=== PATIENT | female | born 2000 | race Caucasian/White ===

== ENCOUNTER 2020-06-04 10:28 | Emergency (ER) | payer SELFPAY ==
[~2020-06-04] VITALS: Ht 157.5 cm; Wt 83.9 kg
[2020-06-04] MEDS ORDERED: PRENATAL MULTI1 EAC5 PO (12:15)
== END 2020-06-04 12:30 | disposition home or self-care (01) ==
LOC: ED 10:28
DX: O21.9 Vomiting of pregnancy, unspecified (principal); Z3A.08 8 weeks gestation of pregnancy
CPT/HCPCS: 81001; 84703; 99284

== ENCOUNTER 2020-09-25 22:02 | Day surgery (SDC) | payer OTHER ==
[~2020-09-25] VITALS: Ht 157.5 cm; Wt 87.5 kg
[~2020-09-25 22:02] MED LIST: PRENATAL MULTI1 EAC5 PO
--- NOTE | 2020-09-26 00:25 | NUR ---
[facility] RAPID COVID TEST DONE PER DR ORDER. COVID TEST COLLECTED BROM BOTH NARES W/O ISSUE. PT TOLERATED WELL.
--- NOTE | 2020-09-26 15:33 | NUR ---
09/26/20 1533 Chelita Escamilla 1527 PT TO PACU O2 VIA FACE MASK. TONES 130-170 VIA DOPPLER FOUND IN RT LOWER QUADRANT.
--- NOTE | 2020-09-27 07:42 | CONS ---
[facility] [address] [place], [place] [address] Signed DATE OF CONSULTATION: 09/26/2020 CHIEF COMPLAINT: Right upper quadrant and epigastric abdominal pain. HISTORY OF PRESENT ILLNESS: Olimpia is a 19-year-old female, who is now 22 weeks with her 1st baby. She had severe epigastric and right upper quadrant abdominal pain radiating through to her back. She said she had nausea and vomiting. She came down to [facility]. She was admitted by her lifeline representatives, Dr. Shipman overnight. Some Dilaudid helped significantly in that regard. She has been on IV fluids and kept n.p.o. Dr. Shipman had spoke with me earlier today. We spoke again just a few minutes ago. Otherwise, Olimpia seems to be doing well. PAST MEDICAL HISTORY: Pilonidal cyst. PAST SURGICAL HISTORY: Incision and drainage, pilonidal cyst with Dr. Toscano. SOCIAL HISTORY: Does not smoke or drink. She has a significant other. She is unemployed and drives. FAMILY HISTORY: None. REVIEW OF SYSTEMS: Ten systems reviewed and no new findings. ALLERGIES: Seasonal allergies, but no known drug allergies. MEDICATIONS: Tums and vitamin. PHYSICAL EXAMINATION: VITAL SIGNS: Her blood pressure is 101/78, heart rate 86, respiratory rate 14, temperature is 98.2. She is 5 feet 1 inch tall, about 87 kg. GENERAL: Olimpia is a 19-year-old female, who is lying supine in her hospital bed. She does not appear systemically ill or toxic. She is not jaundiced. LUNGS: Clear to auscultation bilaterally. HEART: Regular rate and rhythm without murmurs. ABDOMEN: Gravid and feels like the top of the uterus is at or slightly above the Electronically Signed By: GLORIA COYLE MD 09/27/20 0742 PATIENT NAME: OLIMPIA BROWN CONSULTATION DATE OF : 99 REPORT #: [id number] PHYSICIAN: GLORIA COYLE MD PCP: NO PRIMARY CARE PHYSICIAN REPORT IS CONFIDENTIAL AND NOT TO BE RELEASED WITHOUT AUTHORIZATION [facility] [address] [place], [place] [address] Signed umbilicus. She seems to be tender to moderately deep palpation in right upper quadrant. LABORATORY DATA: Her white blood cell count 17.5, hemoglobin 10.8, neutrophils 82. Electrolytes unremarkable. Glucose 100. COVID negative. Total bilirubin 0.2, AST 24, ALT 28, alkaline phosphatase 60. Albumin is 3.9, amylase 63, lipase 18. RADIOGRAPHIC STUDIES: Olimpia had an ultrasound done earlier today. It showed some sludge versus some tiny mobile gallstones. The gallbladder wall is not thickened. The common bile duct is unremarkable 3 mm. The liver is unremarkable. There is no pericholecystic fluid. ASSESSMENT AND PLAN: Olimpia is a 19-year-old female, who is now 22 weeks with a classic gallbladder attack. She more than likely passed one of the small gallstones. I had a long discussion with Olimpia and her lifeline representatives, Dr. Rayna Shipman. At this point, it seems very reasonable to take her to the OR and remove that gallbladder laparoscopically. Of course, there is risk to that including, but not limited to bleeding, infection, scarring, change in contour of the skin, damage to bowel, damage to the main bile duct, incisional hernias, and difficulties with the baby including . I have reviewed with Olimpia the location and function of the gallbladder. We discussed laparoscopic versus open cholecystectomy. She understands expected intraop and postop course. She told me that her great grandmother had a gallbladder surgery when she was many years ago. She has expressed understanding and would like to proceed with surgery. Gloria Coyle MD ALB/MODL /[id number] cc: Chart Filed Incomplete MD Gloria Ashton MD Copies: CHART FILED INCOMPLETE Electronically Signed By: GLORIA COYLE MD 09/27/20 0742 PATIENT NAME: OLIMPIA BROWN CONSULTATION DATE OF : 99 REPORT #: [id number] PHYSICIAN: GLORIA COYLE MD PCP: NO PRIMARY CARE PHYSICIAN REPORT IS CONFIDENTIAL AND NOT TO BE RELEASED WITHOUT AUTHORIZATION [facility] [address] [place], [place] [address] Signed RAYNA SHIPMAN MD, ANDREW L MD ~ Electronically Signed By: GLORIA COYLE MD 09/27/20 0742 PATIENT NAME: OLIMPIA BROWN CONSULTATION DATE OF : 99 REPORT #: [id number] PHYSICIAN: GLORIA COYLE MD PCP: NO PRIMARY CARE PHYSICIAN REPORT IS CONFIDENTIAL AND NOT TO BE RELEASED WITHOUT AUTHORIZATION
--- NOTE | 2020-09-27 07:42 | OR ---
[facility] [address] [place], [place] [address] Signed DATE OF OPERATION: 09/26/2020 SURGEON: Gloria Coyle MD PREOPERATIVE DIAGNOSIS: Cholecystitis with cholelithiasis. POSTOPERATIVE DIAGNOSES: 1. Cholecystitis with cholelithiasis. 2. Cholesterolosis. PROCEDURE: Laparoscopic cholecystectomy without intraoperative cholangiogram. ESTIMATED BLOOD LOSS: None. FINDINGS: Olimpia had approximately 15 stones, measuring 3 mm each in diameter. She had mild patchy inflammatory changes of the gallbladder wall. She had significant cholesterolosis. INDICATIONS: Olimpia is a 19-year-old, who is now 22 weeks with her 1st baby. Last night, she had severe right upper quadrant epigastric abdominal pain. It even stretched across the left upper quadrant in a belt-like fashion. She said it was radiating through to her back. She had nausea and vomiting. She said it was tremendous. She came in to the [facility] for evaluation with Dr. Shipman. Some Dilaudid helped settle the pain down and she was kept overnight. The ultrasound this morning showed sludge or tiny mobile stones within the gallbladder. The gallbladder wall did not appear thickened. Common bile duct was unremarkable at less than 3 mm in diameter. The liver was unremarkable. White count was a little up at 17.5, but the rest of her liver function tests were fine including the amylase and lipase. Her COVID test was negative. I have been asked to see her as a general surgeon on-call. I met with Olimpia in the [facility]. We had a long discussion regarding her current findings. She also understands that at 22 weeks our chance to do laparoscopic surgery for her is decreasing rapidly. After conferring with Olimpia and her cash sales audit clerk, Dr. Sun Shipman, we decided it was best to proceed with her gallbladder surgery at this time. I reviewed with her the location and function of the gallbladder. We discussed laparoscopic versus open cholecystectomy. She understands there is risk of surgery including, but not Electronically Signed By: GLORIA COYLE MD 09/27/20 0742 PATIENT NAME: OLIMPIA BROWN OPERATIVE REPORT DATE OF : 99 REPORT #: [id number] PHYSICIAN: GLORIA COYLE MD PCP: NO PRIMARY CARE PHYSICIAN REPORT IS CONFIDENTIAL AND NOT TO BE RELEASED WITHOUT AUTHORIZATION [facility] [address] [place] [address] Signed limited to bleeding, infection, scarring, change in contour of the skin, damage to bowel, damage to main bile duct, incisional hernias, and other unforeseen comorbidities. In addition, she is worried that baby can be lost if surgery is required for other issues. In addition, patients in this situation have a 3% to 7% chance of having a stone retained in her distal common bile duct. However, since she is , we do not proceed with intraoperative cholangiogram and fluoroscopy. She had expressed understanding and wished to proceed. PROCEDURE NOTE: I met with Olimpia once again in our preop area. I was able to call her mom, Jazmin over the telephone. Afterwards, we took Olimpia back in the operating room and placed her in a supine position under general endotracheal tube anesthesia. She was given Ancef preoperatively. SCDs were utilized. 50 mg of indomethacin was placed per rectum. She was then prepped and draped in the usual sterile fashion. We could feel the top of her uterus right about the umbilicus maybe slightly above the umbilicus. Therefore, we made a standard vertical incision in the midline slightly above the umbilicus. This was carried in the abdomen under direct visualization without difficulty. The Karen trocar was placed under direct visualization without difficulty. The abdomen was insufflated and the remaining trocars were placed in their usual positions under direct visualization of camera without difficulty. We had taken pictures throughout for photodocumentation. Her gallbladder was quite distended at the time of the surgery with patchy inflammatory changes. We dissected out the triangle of Calot and placed 2 clips across the cystic artery and it was divided. We did not perform intraoperative cholangiogram since she is 22 weeks . We had open the gallbladder just as it was coming to the cystic duct and we milked back 1 small 3 mm stone. The other stones we had pushed back up into the gallbladder and secured with a clip on the neck of the gallbladder. After this, we secured the cystic duct stump with a PDS Endoloop. Two clips have been placed across the cystic duct stump to joo its location. The gallbladder was then removed from the gallbladder fossa with the help of cautery and placed into an EndoCatch bag. We used our laparoscopic suturing device to pass 0 Vicryl suture on either side of the fascia of the subxiphoid trocar site. This was tied down to close this fascia primarily. After this, all the trocars were removed and all the gas was allowed to escape. The gallbladder then passed to our circulating nurse and opened on the back table. She had probably 15 stones, all measuring about 3 mm in diameter. They were all yellow cholesterol stones. She did have significant cholesterolosis of the gallbladder wall. After this, we closed the fascia, the supraumbilical trocar site with interrupted [id number] and simple 0-Vicryl sutures. Local anesthetic was injected into the trocar sites. Each trocar site was irrigated and suctioned out until clear. The skin and dermis of each trocar site were closed with interrupted 3-0 subcuticular Monocryl sutures. Dry gauze and tape were applied to all incisions. Olimpia was awakened from her anesthesia, extubated in the OR, and taken to recovery room in stable condition. Electronically Signed By: GLORIA COYLE MD 09/27/20 0742 PATIENT NAME: OLIMPIA BROWN OPERATIVE REPORT DATE OF : 99 REPORT #: [id number] PHYSICIAN: GLORIA COYLE MD PCP: NO PRIMARY CARE PHYSICIAN REPORT IS CONFIDENTIAL AND NOT TO BE RELEASED WITHOUT AUTHORIZATION [address] [address] Signed Gloria Coyle MD ALB/MODL /[id number] cc: MD Gloria Ashton MD Chart Filed Incomplete Copies: SUN SHIPMAN MD, ANDREW L MD CHART FILED INCOMPLETE ~ Electronically Signed By: GLORIA COYLE MD 09/27/20 0742 PATIENT NAME: OLIMPIA BROWN OPERATIVE REPORT DATE OF : 99 REPORT #: [id number] PHYSICIAN: GLORIA COYLE MD PCP: NO PRIMARY CARE PHYSICIAN REPORT IS CONFIDENTIAL AND NOT TO BE RELEASED WITHOUT AUTHORIZATION
--- NOTE | 2020-10-01 11:02 | PATH ---
[facility] [address] [place], [place] [address] Signed SPECIMEN(S): A GALLBLADDER AND STONES SPECIMEN SOURCE: A. GALLBLADDER AND STONES CLINICAL HISTORY: Cholecystitis. FINAL PATHOLOGIC DIAGNOSIS: Gallbladder, cholecystectomy: - Chronic cholecystitis with cholesterolosis. - Cholelithiasis. NAL:cml:C2NR MICROSCOPIC EXAMINATION: Histologic sections of all submitted blocks are examined by light microscopy. These findings, together with the gross examination, support the pathologic diagnosis. GROSS DESCRIPTION: The specimen, labeled "NIECY, gallbladder," is received in formalin and consists of Specimen: Previously opened gallbladder. Dimensions: 7 cm in length and 4.5 cm inner circumference. Serosa: violaceous and smooth. Cystic Duct: Unobstructed. Calculi: Several yellow, round gallstones within the container that range in size from 0.1 to 0.3 cm dimension. Mucosa: Green and velvety. Wall thickness: 0.4 cm. Lymph node: No pericystic lymph nodes are grossly identified. Additional: None. Underwear Welter sections are submitted in cassette (A1). JS (under the direct supervision of a pathologist) The Gross Description was prepared using a voice recognition system. The report was reviewed for accuracy; however, sound-alike word errors, addition and/or deletions may occur. If there is any question about this report, please contact Client Services. PERFORMING LABORATORY: The technical component was performed by Briggo, Castro Briggs, PATIENT NAME: OLIMPIA BROWN PATHOLOGY DATE OF : 99 REPORT #: [id number] PHYSICIAN: AASHISH PATHOLOGY PCP: NO PRIMARY CARE PHYSICIAN REPORT IS CONFIDENTIAL AND NOT TO BE RELEASED WITHOUT AUTHORIZATION [facility] [address] [place], [place] [address] [place] [address] (Second Chef: Marilu Zavala MD; CLIA# [id number]). Professional interpretation [facility], [address] [address] (CLIA# [id number]). Diagnostician: Dilia Martins MD Pathologist Electronically Signed 10/01/2020 Copies: ~ PATIENT NAME: OLIMPIA BROWN PATHOLOGY DATE OF : 99 REPORT #: [id number] PHYSICIAN: AASHISH PATHOLOGY PCP: NO PRIMARY CARE PHYSICIAN REPORT IS CONFIDENTIAL AND NOT TO BE RELEASED WITHOUT AUTHORIZATION
== END 2020-09-26 19:10 | disposition home or self-care (01) ==
LOC: DS 22:02 → FBCO 22:02 → FBC 09-26 00:06 → FBCO 09-26 00:06 → EDSTATUS 09-26 14:00 → DS 09-26 19:10 → FBC 09-26 19:10
PROVIDERS: ATTEND Colon & Rectal Surgery
PROC: 0FT44ZZ Resection of Gallbladder, Percutaneous Endoscopic Approach (ICD-10-PCS; principal; 2020-09-26 14:00)
DX: O99.612 Diseases of the digestive system complicating pregnancy, second trimester (principal); K80.10 Calculus of gallbladder with chronic cholecystitis without obstruction; Z3A.22 22 weeks gestation of pregnancy; Z20.822 Contact with and (suspected) exposure to COVID-19
CPT/HCPCS: 00790; 36415; 76700; 80053; 81001; 82150; 83690; 85025; 88304; 96361; 99213; C9803; J0330; J0690; J1100; J1170; J1885; J2250; J2405; J2704; J2765; J3010; J7121; U0003

== ENCOUNTER 2021-01-26 18:32 | Inpatient (IN) | payer OTHER ==
[~2021-01-26] VITALS: Ht 157.5 cm; Wt 93.9 kg
[~2021-01-26 18:32] MED LIST changes: +ACETAMINOPHEN500 MG PO; +AUGMENTIN 875-1 EACH PO; +KEFLEX750 MG PO; +VICODIN HP 10-1 EAC1 PO
--- NOTE | 2021-01-26 21:17 | NUR ---
PT WAS SWABBED FOR COVID 19 FULL PPE DONNED
--- NOTE | 2021-01-26 23:16 | PR ---
[facility] [address] [facility] [place], [place] [address] Signed Progress Notes IP Datetime Report Generated by CPN: 01/26/2021 23:16 PROGRESS NOTES: [id number] Impression: Normal Progression of Labor Procedures: Artificial ROM; Sterile Vag Exam Plan: Continue Present Management VITAL SIGNS: [id number] Vital Signs: Reviewed; Within Normal Limits EXAM: [id number] Dilatation: 4.0 Effacement: 90 Station: -2 Contractions: q 2 to 3 min MEMBRANES: [id number] Amniotic Fluid Color: Clear Comments: Comfortable after epidural and some progress. Will continue. FETUS A: [id number] FHR Baseline: 150 Variability: Moderate 6-25bpm Accelerations: 15X15 Decelerations: None FHR Category: Category I Presentation: Vertex Comments on Fetus A: No evidence of metabolic acidosis FETUS B: [id number] Signing Physician: Rayna Shipman MD Copies: ~ *Electronically Signed* 01/26/21 2316 RAYNA SHIPMAN MD PATIENT NAME: OLIMPIA BROWN PROGRESS NOTE DATE OF : 99 PHYSICIAN: RAYNA SHIPMAN MD RPT #: [id number] REPORT IS CONFIDENTIAL AND NOT TO BE RELEASED WITHOUT AUTHORIZATION
--- NOTE | 2021-01-27 05:17 | PR ---
[facility] [address] [place], [place] [address] Signed Progress Notes IP Datetime Report Generated by YIMI: 01/27/2021 05:16 PROGRESS NOTES: [id number] Impression: Normal Progression of Labor; Non-reassuring Heart Rate Procedures: Intrauterine Pressure Catheter; Scalp Electrode Plan: Deliver- Section Informed Consent Obtain: Section Delivery VITAL SIGNS: [id number] Vital Signs: Reviewed; Within Normal Limits EXAM: [id number] Dilatation: 7.0 Effacement: 90 Station: -2 Contractions: q 2 to 3 min MEMBRANES: [id number] Amniotic Fluid Color: Clear Comments: Fetus not tolerating contractions well with very frequent lates and episodes of min variability. Pitocin off and subq terb given with improvement in variability. Will proceed with C/S for intolerance to labor. PARQ done for C/S FETUS A: [id number] FHR Baseline: 150 Variability: Moderate 6-25bpm Accelerations: 15X15 Decelerations: None FHR Category: Category I Presentation: Vertex Comments on Fetus A: No evidence of metabolic acidosis FETUS B: [id number] Signing Physician: Rayna Shipman MD Copies: ~ *Electronically Signed* 01/27/21 0516 RAYNA SHIPMAN MD PATIENT NAME: OLIMPIA BROWN PROGRESS NOTE DATE OF : 99 PHYSICIAN: RAYNA SHIPMAN MD RPT #: [id number] REPORT IS CONFIDENTIAL AND NOT TO BE RELEASED WITHOUT AUTHORIZATION
--- NOTE | 2021-01-27 07:52 | NUR ---
01/27/21 0752 BINTA HENRY 0634 PATIENT TO ROOM 101 ON BED, SAVAGE BUI PROVIDED BEDSIDE REPORT. SPINAL EFFECTIVE PATIENT REPORTS 0/10 PAIN, NO NAUSEA. PATIENT SINUS TACH, BP APPEARS TO BE SOFT, SAVAGE MOVED BP CUFF TO LEFT LOWER LEG FOR BETTER READING, PATIENT APPEARS TO HAVE TREMORS. WARM BLANKETS PLACE. PATIENT HAS LOW GRADE TEMP 99.0 APPEARS RED IN CHEEKS, LYING SUPINE. 0705 PATIENT CONTINUES TO HAVE SOFT BP WITH SINUS TACH. APPEARS TO BE AWAKE, AT BEDSIDE WITH BABY. FUNDAL CHECKS WNL. SMALL AMOUNT OF DRAINAGE TO RHONDA PAD. 0715 BABY AT BREAST, PATIENT BP AND HR IMPROVED. PATIENT HAS STOPPED SHAKING, BP CUFF MOVED TO RIGHT UPPER ARM. PATIENT REPORTS NO PAIN, OR NAUSEA. DRESSING TO SURGICAL SITE C/D/I. FUNDAL CHECKS WNL, RHONDA PAD HAS SMALL AMOUNT OF DRAINAGE. 0720 EMPTIED 75 ML OF YELLOW URINE FROM RALPH BAG. PROVIDED BEDSIDE REPORT TO ALBERTA DAY. PATIENT AWAKE, FEBRILE 100.3 ORAL TEMP. FUNDAL CHECKS WNL. NO CHANGES TO DRESSING SITES.
--- NOTE | 2021-01-28 02:09 | PR ---
[facility] [address] [place], [place] [address] Signed PP Progress Notes Datetime Report Generated by YIMI: 01/28/2021 02:09 SUBJECTIVE: [id number] Pain: Within Normal Limits Nausea/Vomiting: Denies Flatus: No Bowel Movement: No Vital Signs: [id number] Vital Signs: Reviewed Notable Details: Oral temp 103.1 Tachycardia 120s Respiratory: Normal Abdomen/Uterus: Normal Lochia: Normal Extremities: Normal Incision: Normal Exam Comments: General: no apparent distress, sitting in bed, reporting feeling "a little warm" Skin: pt sunburned prior to admission, pattern unchanged per pt CV: RRR, trace lower extremity edema bilaterally Lungs: no dyspnea, regular respiratory rate, no retractions Abd: soft, appropriate tenderness to palpation, fundus firm below umbilicus Extremities: SCDs in place, negative Eros's bilaterally IMPRESSION/PLAN/PROCEDURES: [id number] Impression: Endometritis Plan: Antibiotic Therapy Other Plans: Blood cultures, CBC, CMP, lactic acid Progress Notes: [id number] POD#1 s/p PLTCS for nonreassuring heart tones Concern for endometritis -febrile: 103.1 -tachycardia: epidsodic non-persistent tachycardia at 1800, CBC at that time within normal limits, elevated (120s) @ 0100 Plan: -blood cultures, lactic acid, CMP, repeat CBC ordered -vitals q 30 min awaiting labs -start antibiotic therapy: Gentamicin 5mg/kg IV daily AND Clindamicin 900mg IV q8h Discussed plan with patient and RN, at bedside *Electronically Signed* 01/28/21 0209 ROB WILLIS DO PATIENT NAME: OLIMPIA BROWN Sean PROGRESS NOTE DATE OF : 99 PHYSICIAN: ROB WILLIS DO RPT #: [id number] REPORT IS CONFIDENTIAL AND NOT TO BE RELEASED WITHOUT AUTHORIZATION [facility] [address] [place] [address] Signed Signing Physician: Rob Willis DO Copies: ~ *Electronically Signed* 01/28/21 0209 ROB WILLIS DO PATIENT NAME: OLIMPIA BROWN Sean PROGRESS NOTE DATE OF : 99 PHYSICIAN: ROB WILLIS DO RPT #: [id number] REPORT IS CONFIDENTIAL AND NOT TO BE RELEASED WITHOUT AUTHORIZATION
--- NOTE | 2021-01-28 13:24 | PR ---
[facility] [facility] [address] [place], [place] [address] Signed PP Progress Notes Datetime Report Generated by YIMI: 01/28/2021 13:24 SUBJECTIVE: [id number] Pain: Within Normal Limits Nausea/Vomiting: Denies Flatus: Yes Bowel Movement: Yes Vital Signs: [id number] Vital Signs: Reviewed; Within Normal Limits Notable Details: Afebrile since 103.0 Cardiovascular: Normal Respiratory: Normal Abdomen/Uterus: Normal Lochia: Normal Extremities: Normal Incision: Normal Progress: Normal Exam Comments: General: no apparent distress, sitting in bed, reporting feeling "a little warm" Skin: pt sunburned prior to admission, pattern unchanged per pt CV: RRR, trace lower extremity edema bilaterally Lungs: no dyspnea, regular respiratory rate, no retractions Abd: soft, appropriate tenderness to palpation, fundus firm below umbilicus Extremities: SCDs in place, negative Eros's bilaterally IMPRESSION/PLAN/PROCEDURES: [id number] Impression: Endometritis Plan: Continue Present Management Other Plans: Blood cultures, CBC, CMP, lactic acid Progress Notes: POD #1 s/p PLTCS -Antibiotics started at 2am for endometritis, afebrile since 103.0 -Doing well, denies fevers/chills, abdominal pain unchanged and appropriate for postoperative state -Incision c/d/i, fundus firm below umbilicus -voiding, ambulating, +BM, tolerating regular diet - without difficulty Continue care, continue antibiotic therapy with gentamicin/clindamycin Continue to follow labs, blood cultures Anticipate DCing antibiotic therapy after 24-48 hours afebrile *Electronically Signed* 01/28/21 1324 ROB WILLIS DO PATIENT NAME: OLIMPIA BROWN Sean PROGRESS NOTE DATE OF : 99 PHYSICIAN: ROB WILLIS DO RPT #: [id number] REPORT IS CONFIDENTIAL AND NOT TO BE RELEASED WITHOUT AUTHORIZATION [address] [address] Signed Signing Physician: Rob Willis DO Copies: ~ *Electronically Signed* 01/28/21 1324 ROB WILLIS DO PATIENT NAME: OLIMPIA BROWN Sean PROGRESS NOTE DATE OF : 99 PHYSICIAN: ROB WILLIS DO RPT #: [id number] REPORT IS CONFIDENTIAL AND NOT TO BE RELEASED WITHOUT AUTHORIZATION
--- NOTE | 2021-01-29 08:30 | PR ---
[facility] [address] [facility] [place], [place] [address] Signed PP Progress Notes Datetime Report Generated by YIMI: 01/29/2021 08:29 SUBJECTIVE: [id number] Pain: Within Normal Limits Nausea/Vomiting: Denies Flatus: Yes Bowel Movement: Yes Vital Signs: [id number] Vital Signs: Reviewed; Within Normal Limits Notable Details: Afebrile since 01/28 Cardiovascular: Normal Respiratory: Normal Abdomen/Uterus: Abnormal Lochia: Normal Vulva/Perineum: Not Done CVA Tenderness: Not Done Extremities: Normal Incision: Normal Progress: Normal Exam Comments: Abdomen with active BS. Fundus firm, NT @ U-2. H/H 9.8/30, plat 161k, WBC 12.8 S77.8, L9.5 IMPRESSION/PLAN/PROCEDURES: [id number] Impression: Normal Progression Plan: Continue Present Management Other Plans: Blood cultures, CBC, CMP, lactic acid Progress Notes: Doing well overall though on antibiotics for endometritis. Cultures neg thus far from placenta and blood. Will continue antibiotics and observation. Signing Physician: Sun Shipman MD Copies: ~ *Electronically Signed* 01/29/21828 SUN SHIPMAN MD PATIENT NAME: OLIMPIA BROWN PROGRESS NOTE DATE OF : 99 PHYSICIAN: SUN SHIPMAN MD RPT #: [id number] REPORT IS CONFIDENTIAL AND NOT TO BE RELEASED WITHOUT AUTHORIZATION
--- NOTE | 2021-01-30 09:47 | PR ---
[facility] [address] [place], [place] [address] Signed PP Progress Notes Datetime Report Generated by YIMI: 01/30/2021 09:47 SUBJECTIVE: [id number] Pain: Within Normal Limits Nausea/Vomiting: Denies Flatus: Yes Bowel Movement: Yes Vital Signs: [id number] Vital Signs: Reviewed; Within Normal Limits Notable Details: Afebrile since 01/28 Cardiovascular: Normal Respiratory: Normal Abdomen/Uterus: Abnormal Lochia: Normal Vulva/Perineum: Not Done Breasts: Not Done CVA Tenderness: Not Done Extremities: Normal Incision: Normal Progress: Normal Exam Comments: Abdomen with active BS. Fundus firm, NT @ U-2. H/H 9.7/29.2, WBC 9 S48, plat 181k IMPRESSION/PLAN/PROCEDURES: [id number] Impression: Normal Progression Plan: Remove [place]; Discharge Other Plans: Blood cultures, CBC, CMP, lactic acid Other Procedures: varicella vaccination Progress Notes: Doing well. She has been afebrile >36 hrs and WBC down to normal. She is ready for D/C. Signing Physician: Rayna Shipman MD Copies: ~ *Electronically Signed* 01/30/21 0947 RAYNA SHIPMAN MD PATIENT NAME: OLIMPIA BROWN PROGRESS NOTE DATE OF : 99 PHYSICIAN: RAYNA SHIPMAN MD RPT #: [id number] REPORT IS CONFIDENTIAL AND NOT TO BE RELEASED WITHOUT AUTHORIZATION
--- NOTE | 2021-01-31 17:53 | OR ---
[facility] [address] [place], [place] [address] Signed DATE OF OPERATION: 01/27/2021 SURGEON: Sun Shipman MD ROOFING MACHINE OPERATOR: Rob Willis D.O. PREOPERATIVE DIAGNOSES: 1. Term . 2. intolerance to labor. POSTOPERATIVE DIAGNOSES: 1. Term . 2. intolerance to labor. 3. Delivered. PROCEDURE: Primary section with low segment transverse uterine incision. ANESTHESIA: Epidural. ESTIMATED BLOOD LOSS: 800 mL. DRAINS: Zimmer catheter. INDICATIONS AND FINDINGS: The patient is a 20-year-old female, 1, para 0, admitted at 39+ weeks with SROM and active labor. The patient progressed slowly in her labor going from 3 to 7 cm overnight. The baby was not tolerating the contractions well, however. Position changes were tried as well as stopping the Pitocin. At that point, the decision was made to proceed with primary section for intolerance to labor. She was delivered of a little boy from the ROP position with Apgars of 8/9 and a weight of 8 pounds 4 ounces. The uterus, tubes, ovaries, placenta were normal. DESCRIPTION OF PROCEDURE: The patient was prepped and draped in the supine position. A Pfannenstiel skin incision Electronically Signed By: SUN SHIPMAN MD 01/31/21 1753 PATIENT NAME: OLIMPIA BROWN OPERATIVE REPORT DATE OF : [birth year] REPORT #: [id number] PHYSICIAN: SUN SHIPMAN MD PCP: NO PRIMARY CARE PHYSICIAN REPORT IS CONFIDENTIAL AND NOT TO BE RELEASED WITHOUT AUTHORIZATION [facility] [address] [place], [place] [address] Signed was made, carried down through the fascia. The fascial incision was extended laterally. The inferior and superior fascial flaps were then created. The muscles were bluntly divided and the peritoneum opened sharply and the incision extended superiorly and inferiorly. The Maury retractor was then placed. The uterine incision was made at the upper aspect of the peritoneal reflection. The baby was delivered with the above findings and handed off to the pediatric staff in attendance. The placenta was removed manually. The uterus was explored with a lap tape assuring no remaining fragments. The edges of the incision were identified and the incision closed in 2 layers using 0-Monocryl. The first layer was a running locking stitch. The second was a vertical imbricating stitch. Additional [id number]-zu-[id number] were required in the midportion to control bleeding. Following this, the abdomen was irrigated, inspected, and bleeding points on the peritoneum were cauterized. Good hemostasis noted. The retractor was removed and the peritoneum identified. ACell graft was laid over the lower segment to aid in healing. The peritoneum was then closed in a running suture of 3-0 Vicryl. The muscles were brought together in the midline with interrupted sutures of 0-Vicryl. Bleeding points were controlled with cautery. This layer was irrigated and good hemostasis noted. ACell powder was sprinkled over the muscles to aid in healing. The fascia was then closed from the each angle to the midline with a running suture of 0-Vicryl. The subcu space was irrigated, inspected, and bleeding points were controlled with cautery. There was some bleeding from some subcu vessels on the right angle and [id number] sutures of 3-0 Vicryl placed in this area for control of bleeding. The deep space was then closed with interrupted sutures of 3-0 Vicryl. The skin was closed with latisha. All sponge and needle counts were correct. She tolerated the procedure well and was taken to the recovery room in good condition. Sun Shipman MD PJW/MODL /[id number] cc: Rob Willis DO Copies: ROB WILLIS DO Electronically Signed By: SUN SHIPMAN MD 01/31/21 1753 PATIENT NAME: OLIMPIA BROWN OPERATIVE REPORT DATE OF : 99 REPORT #: [id number] PHYSICIAN: SUN SHIPMAN MD PCP: NO PRIMARY CARE PHYSICIAN REPORT IS CONFIDENTIAL AND NOT TO BE RELEASED WITHOUT AUTHORIZATION [facility] [address] [place], [place] [address] Signed ~ Electronically Signed By: SUN SHIPMAN MD 01/31/21 1753 PATIENT NAME: OLIMPIA BROWN OPERATIVE REPORT DATE OF : 99 REPORT #: [id number] PHYSICIAN: SUN SHIPMAN MD PCP: NO PRIMARY CARE PHYSICIAN REPORT IS CONFIDENTIAL AND NOT TO BE RELEASED WITHOUT AUTHORIZATION
== END 2021-01-30 12:20 | disposition home or self-care (01) | DRG 786 ==
LOC: FBCO 18:32 → FBC 20:39
PROVIDERS: ADMIT Obstetrics & Gynecology; ATTEND Obstetrics & Gynecology
PROC: 00HU33Z Insertion of Infusion Device into Spinal Canal, Percutaneous Approach (ICD-10-PCS; 2021-01-26)
PROC: 3E0R3BZ Introduction of Anesthetic Agent into Spinal Canal, Percutaneous Approach (ICD-10-PCS; 2021-01-26)
PROC: 10H07YZ Insertion of Other Device into Products of Conception, Via Natural or Artificial Opening (ICD-10-PCS; 2021-01-27)
PROC: 10D00Z1 Extraction of Products of Conception, Low, Open Approach (ICD-10-PCS; principal; 2021-01-27 05:53)
PROC: 3E0234Z Introduction of Serum, Toxoid and Vaccine into Muscle, Percutaneous Approach (ICD-10-PCS; 2021-01-30)
DX: O99.214 Obesity complicating childbirth (principal); O41.1030 Infection of amniotic sac and membranes, unspecified, third trimester, not applicable or unspecified; O76 Abnormality in fetal heart rate and rhythm complicating labor and delivery; O86.12 Endometritis following delivery; Z20.822 Contact with and (suspected) exposure to COVID-19; Z37.0 Single live birth; E66.9 Obesity, unspecified; Z3A.39 39 weeks gestation of pregnancy; O99.62 Diseases of the digestive system complicating childbirth; K21.9 Gastro-esophageal reflux disease without esophagitis; Z23 Encounter for immunization
CPT/HCPCS: 01961; 36415; 59025; 80053; 80170; 82803; 83030; 83605; 85025; 85027; 86850; 86900; 86901; 87040; 87070; 87075; 87076; 87077; 87185; 87205; 90716; A9270; C9803; G0463; J0690; J1580; J1644; J2001; J2274; J2405; J2550; J2590; J2790; J2795; J3105; J3490; J7050; J7060; J7121; U0003

== ENCOUNTER 2022-09-23 13:33 | Inpatient (IN) | payer OTHER ==
[~2022-09-23] VITALS: Ht 154.9 cm; Wt 98.4 kg
[~2022-09-23 13:33] MED LIST changes: +ONDANSETRON ODT8 MG PO
--- NOTE | 2022-09-23 19:36 | NUR ---
09/23/221935 Marisol Sanderson 192 PATIENT INTO ROOM 104. PATIENT IS ALERT AND ORIENTED. BREATHING EQUAL AND UNLABORED. OXYGEN SATURATIONS ABOVE 95% ON ROOM AIR. SR ON TELE. FUNDAL MASSAGE COMPLETE. SPINAL LEVEL CHECKED. IVF INFUSING THROUGH A PATENT IV SITE WITH PIT. SCD'S ON. AT BEDSIDE. FBC NURSE WITH BABY.
--- NOTE | 2022-09-24 07:34 | PR ---
[facility] [address] [facility] [place], [place] [address] Signed PP Progress Notes Datetime Report Generated by YIMI: 09/24/2022 07:34 SUBJECTIVE: [id number] Pain: Within Normal Limits Nausea/Vomiting: Denies Flatus: No Vital Signs: [id number] Vital Signs: Reviewed; Within Normal Limits Cardiovascular: Normal Respiratory: Normal Abdomen/Uterus: Abnormal Lochia: Normal Vulva/Perineum: Not Done Breasts: Not Done CVA Tenderness: Not Done Extremities: Normal Incision: Normal Progress: Normal Exam Comments: Abdomen with active BS. Fundus firm, NT @ U-2. H/H 11.4/34.3, WBC 14, plat 142k IMPRESSION/PLAN/PROCEDURES: [id number] Impression: Normal Progression Other Plans: ambulate, shower Progress Notes: Doing well. Will increase activity. Signing Physician: Sun Shipman MD Copies: ~ *Electronically Signed* 09/24/22733 SUN SHIPMAN MD PATIENT NAME: OLIMPIA BROWN PROGRESS NOTE DATE OF : 99 PHYSICIAN: SUN SHIPMAN MD RPT #: [id number] REPORT IS CONFIDENTIAL AND NOT TO BE RELEASED WITHOUT AUTHORIZATION
--- NOTE | 2022-09-25 07:24 | PR ---
[facility] [address] [facility] [place], [place] [address] Signed PP Progress Notes Datetime Report Generated by YIMI: 09/25/2022 07:24 SUBJECTIVE: [id number] Pain: Within Normal Limits Nausea/Vomiting: Denies Flatus: Yes Bowel Movement: Yes Vital Signs: [id number] Vital Signs: Reviewed; Within Normal Limits Cardiovascular: Not Done Respiratory: Not Done Abdomen/Uterus: Abnormal Lochia: Normal Vulva/Perineum: Not Done Breasts: Not Done CVA Tenderness: Not Done Extremities: Normal Incision: Normal Progress: Normal Exam Comments: Abdomen with active BS. Fundus firm, NT @ U-1. Incision intact IMPRESSION/PLAN/PROCEDURES: [id number] Impression: Normal Progression Plan: Discharge Other Plans: ambulate, shower Procedures: None Progress Notes: Doing well. She is ready for D/C. Signing Physician: Sun Shipman MD Copies: ~ *Electronically Signed* 09/25/22723 SUN SHIPMAN MD PATIENT NAME: OLIMPIA BROWN PROGRESS NOTE DATE OF : 99 PHYSICIAN: SUN SHIPMAN MD RPT #: [id number] REPORT IS CONFIDENTIAL AND NOT TO BE RELEASED WITHOUT AUTHORIZATION
--- NOTE | 2022-09-26 18:28 | OR ---
[facility] [address] [place], [place] [address] Signed DATE OF OPERATION: 09/23/2022 SURGEON: Sun Shipman MD TROUBLE TRACER: Rob Willis DO PREOPERATIVE DIAGNOSES: A 36+ week , premature rupture of membranes, previous section. POSTOPERATIVE DIAGNOSES: A 36+ week , premature rupture of membranes, previous section, delivered. PROCEDURE: Repeat section with low segment transverse uterine incision. ANESTHESIA: Spinal. ESTIMATED BLOOD LOSS: 500 mL. DRAINS: Zimmer catheter. INDICATIONS AND FINDINGS: The patient is a 21-year-old female, 2, para 1, admitted at 36+ weeks with spontaneous rupture of membranes and early labor. She has undergone previous section and desired repeat. At the time of surgery, she was delivered of a little girl via lower segment transverse uterine incision with Apgars of 8 and 9 and weight of 6 pounds 1 ounce. The uterus, tubes, ovaries, and placenta appeared normal. PROCEDURE IN DETAIL: The patient was prepped and draped in the supine position. A repeat Pfannenstiel skin incision was made and carried down to the fascia. The incision was extended laterally. The inferior and superior fascial flaps were then developed. The muscles were bluntly and the peritoneum opened bluntly. The Maury retractor was then placed. The uterine incision was then made at the upper aspect of the peritoneal reflection. The incision was extended bluntly. The baby was delivered with the above findings and Electronically Signed By: SUN SHIPMAN MD 09/26/22 1828 PATIENT NAME: OLIMPIA BROWN OPERATIVE REPORT DATE OF : 99 REPORT #: [id number] PHYSICIAN: SUN SHIPMAN MD PCP: JOSEFA GARCIA PA-C REPORT IS CONFIDENTIAL AND NOT TO BE RELEASED WITHOUT AUTHORIZATION [facility] [address] [place], [place] [address] Signed handed off to the pediatric staff in attendance. The placenta was removed manually. The uterus was explored with a lap tape assuring no remaining fragments. The edges of the incision were identified and the uterus was closed in 2 layers using 0 Monocryl. The first layer was a running locking stitch and the second was a horizontal imbricating stitch. An additional [id number] was required in the midportion for control of bleeding. The abdomen was then irrigated and inspected and good hemostasis was noted. The retractor was removed and the peritoneum identified. The peritoneum was closed with a running suture of 3-0 Vicryl. The muscles were brought together with interrupted sutures of 0 Vicryl. Bleeding points on the muscle were controlled with cautery. This layer was irrigated and hemostasis was assured. The fascia was then closed from each angle to the midline with a running suture of 0 Vicryl. The subcu space was irrigated and bleeding points were controlled with cautery. The deep space was closed with interrupted sutures of 3-0 Vicryl. The skin was closed with latisha. All sponge and needle counts were correct. She tolerated the procedure well and was taken to the recovery room in good condition. Sun Shipman MD PJW/MODL /[id number] cc: Rob Willis DO Copies: ROB WILLIS DO ~ Electronically Signed By: SUN SHIPMAN MD 09/26/22 1828 PATIENT NAME: OLIMPIA BROWN OPERATIVE REPORT DATE OF : 99 REPORT #: [id number] PHYSICIAN: SUN SHIPMAN MD PCP: JOSEFA GARCIA PA-C REPORT IS CONFIDENTIAL AND NOT TO BE RELEASED WITHOUT AUTHORIZATION
== END 2022-09-25 13:50 | disposition home or self-care (01) | DRG 788 ==
LOC: FBCO 13:33 → FBC 14:20
PROVIDERS: ADMIT Obstetrics & Gynecology; ATTEND Obstetrics & Gynecology
PROC: 10D00Z1 Extraction of Products of Conception, Low, Open Approach (ICD-10-PCS; principal; 2022-09-23 18:03)
DX: O34.211 Maternal care for low transverse scar from previous cesarean delivery (principal); O42.013 Preterm premature rupture of membranes, onset of labor within 24 hours of rupture, third trimester; Z3A.36 36 weeks gestation of pregnancy; Z37.0 Single live birth; O99.824 Streptococcus B carrier state complicating childbirth; O26.893 Other specified pregnancy related conditions, third trimester; Z67.41 Type O blood, Rh negative
CPT/HCPCS: 01961; 36415; 83030; 84112; 85027; 86850; 86900; 86901; 87502; A9270; J0456; J0690; J1650; J1885; J2274; J2370; J2590; J2790; J3010; U0003

== ENCOUNTER 2024-04-12 08:49 | Emergency (ER) | payer OTHER ==
[~2024-04-12] VITALS: Ht 154.9 cm; Wt 62.1 kg
[2024-04-12] MEDS ORDERED: KETOROLAC TROMETHAMINE 30 MG/ML VIAL IV ONE (09:00)
[2024-04-12] MEDS ORDERED: ondansetron HCL 4 MG/2 ML VIAL IV ONE (09:00)
[2024-04-12] MEDS ORDERED: SODIUM CHLORIDE 0.9% 500 ML IV PRN (09:00)
[2024-04-12 09:23] LABS: BILIRUBIN, URINE NEGATIVE (negative); BLOOD/HGB, URINE NEGATIVE (Negative); KETONE, URINE TRACE (Negative); LEUK ESTERASE, URINE NEGATIVE (negative); NITRITE, URINE NEGATIVE (negative); PH, URINE 7.5 (5-7)
[2024-04-12 09:23] LABS: BASOPHILS 0.5 % (0-2); EOSINOPHILS 1.6 % (0-6); HEMATOCRIT 41.8 % (35.0-50.0); HEMOGLOBIN 13.8 g/dL (12.0-18.0); LYMPHOCYTES 23.9 % (24-44); MCH 26.2 (27-36); MCV 79.5 fl (81-99); MONOCYTES 10.1 % (0-12); NEUTROPHILS 63.9 % (39-80); PLATELET COUNT 171 K/uL (140-440); RBC 5.25 M/ul (4.3-5.7); RDW 13.1 (10.5-15.0)
[2024-04-12 09:39] LABS: ALBUMIN 3.8 g/dL (3.4-5.0); ALBUMIN/GLOBULIN RATIO 1.27 (1.1-2.4); ANION GAP 17.3 (7-21); BILIRUBIN, TOTAL 0.8 ng/dL (0.2-1.0); BUN/CREATININE RATIO 24.35 (6.0-28.6); CALCIUM 8.6 mg/dL (8.5-10.1); CREATININE, SERUM 0.78 mg/dL (0.55-1.02); POTASSIUM 3.3 mmol/L (3.5-5.1); PROTEIN, TOTAL 6.8 g/dL (6.4-8.2)
[2024-04-12 11:50] VITALS: BP 100/59
== END 2024-04-12 11:50 | disposition home or self-care (01) ==
LOC: ED 08:49
PROVIDERS: Emergency Medicine
DX: K43.9 Ventral hernia without obstruction or gangrene (principal); Z79.899 Other long term (current) drug therapy
CPT/HCPCS: 36415; 74177; 80053; 81003; 83690; 84703; 85025; 96375; 99284-25; J1885; J2405; J7040; Q9967

== ENCOUNTER 2024-11-16 12:39 | Emergency (ER) | payer OTHER ==
[~2024-11-16] VITALS: Ht 154.9 cm; Wt 97.1 kg
[~2024-11-16 12:39] MED LIST changes: +FAMOTIDINE20 MG PO; +FLUOXETINE HCL20 MG PO; +HYDROCODON-ACE1 EA10 PO; +JENCYCLA0.35 MG PO; +WELLBUTRIN SR100 MG PO
[2024-11-16] MEDS ORDERED: DOXYCYCLINE HYCLATE 100 MG CAP PO ONE (13:00)
[2024-11-16] MEDS ORDERED: DOXYCYCLINE HYCLATE 100 MG HOME.PACK PO ONE (13:00)
[2024-11-16] MEDS ORDERED: metroNIDAZOLE 250 MG TAB PO ONE (13:00)
[2024-11-16] MEDS ORDERED: levonorgestreL 1.5 MG TAB PO ONE (13:00)
[2024-11-16] MEDS ORDERED: metroNIDAZOLE 500 MG HOME.PACK PO ONE (13:00)
[2024-11-16] MEDS ORDERED: CEFTRIAXONE SOD 500 MG VIAL IM ONE (13:00)
[2024-11-16 13:03] VITALS: BP 130/82
[2024-11-16 14:25] LABS: BASOPHILS 0.4 % (0-2); EOSINOPHILS 0.5 % (0-6); HEMATOCRIT 40.7 % (35.0-50.0); HEMOGLOBIN 13.8 g/dL (12.0-18.0); LYMPHOCYTES 15.9 % (24-44); MCHC 33.9 g/dl (30-36); MCV 79.5 fl (81-99); MONOCYTES 5.8 % (0-12); NEUTROPHILS 77.4 % (39-80); PLATELET COUNT 206 K/uL (140-440); RBC 5.13 M/ul (4.3-5.7); RDW 14.3 (10.5-15.0)
[2024-11-16 14:42] LABS: ALBUMIN 4.3 g/dL (3.4-5.0); ALBUMIN/GLOBULIN RATIO 1.3 (1.1-2.4); ANION GAP 12.4 (7-21); BILIRUBIN, TOTAL 0.9 mg/dL (0.2-1.0); BUN/CREATININE RATIO 18.29 (6.0-28.6); CALCIUM 9.3 mg/dL (8.5-10.1); CREATININE, SERUM 0.82 mg/dL (0.55-1.02); POTASSIUM 3.4 mmol/L (3.5-5.1); PROTEIN, TOTAL 7.6 g/dL (6.4-8.2)
[2024-11-18 09:40] LABS: HEPATITIS BE ANTIBODY Negative (Negative)
[2024-11-18 09:49] LABS: HEPATITIS B SURFACE ANTIBODY 5.09 IU/L (())
== END 2024-11-16 15:10 | disposition home or self-care (01) ==
LOC: ED 12:39
PROVIDERS: Emergency Medicine
DX: T74.21XA Adult sexual abuse, confirmed, initial encounter (principal); Z79.899 Other long term (current) drug therapy
CPT/HCPCS: 36415; 80053; 84703; 85025; 86706; 86707; 96372; 99285; A9270; J0696

== ENCOUNTER 2025-08-30 06:28 | Emergency (ER) | payer OTHER ==
[~2025-08-30] VITALS: Ht 154.9 cm; Wt 88.4 kg
[2025-08-30 07:08] LABS: BLOOD/HGB, URINE SMALL (Negative); KETONE, URINE NEGATIVE (Negative); LEUK ESTERASE, URINE MODERATE (negative); NITRITE, URINE NEGATIVE (negative)
[2025-08-30 07:22] LABS: BACTERIA, URINE 2+ /hpf (negative); CASTS, URINE NONE SEEN \\lpf; CRYSTALS, URINE NONE SEEN (0-1+); EPITHELIAL CELLS, URINE SQUAMOUS 2+ /lpf (0-1+); REFLEX CULTURE, URINE No (No)
[2025-08-30] MEDS ORDERED: MACROBID 100 M100 MG PO (07:38)
[2025-08-30] MEDS ORDERED: FLUCONAZOLE150 MG PO (07:38)
[2025-08-30 07:46] VITALS: BP 109/62
== END 2025-08-30 07:46 | disposition home or self-care (01) ==
LOC: ED 06:28
PROVIDERS: Family Medicine
DX: N39.0 Urinary tract infection, site not specified (principal); Z79.899 Other long term (current) drug therapy
CPT/HCPCS: 81001; 84703; 99283